=== PATIENT | male | born 1980 ===

== ENCOUNTER → 2020-10-19 | Outpatient (CLI) | payer OTHER ==
[2020-10-19 07:55] LABS: ALANINE AMINOTRANSFERASE 66 U/L (12-78); ALBUMIN 4.3 g/dL (3.4-5.0); ANION GAP 8 mmol/L (5-15); CALCIUM 9.1 mg/dL (8.5-10.1); CHLORIDE 107 mmol/L (98-107); CHOLESTEROL, TOTAL 195 mg/dL (140-239); CREATININE 1.05 mg/dL (0.7-1.3); TRIGLYCERIDES 388 mg/dL (50-200); VLDL CHOLESTEROL 78 mg/dL (0-25)
[2020-10-19 07:57] LABS: ALKALINE PHOSPHATASE 47 U/L (45-117); BILIRUBIN,TOTAL 0.5 mg/dL (0.2-1.0); CHOL/HDL RATIO 6.5; HDL CHOL % 15 % (26-37); HDL CHOLESTEROL (DIRECT) 30 mg/dL (40-60); LDL CHOLESTEROL,CALCULATED 87 mg/dL (54-169); LDL/HDL RATIO 2.9 (0.5-3.0); TOTAL PROTEIN 8.3 g/dL (6.4-8.2)
== END | disposition home or self-care (01) ==
LOC: LAB 07:29
PROVIDERS: ATTEND Family Medicine
DX: Z13.1 Encounter for screening for diabetes mellitus (principal); Z13.220 Encounter for screening for lipoid disorders
CPT/HCPCS: 36415; 80053; 80061; 83036

== ENCOUNTER 2020-12-16 08:11 | Outpatient (CLI) | payer OTHER | END 2020-12-16 23:59 | disposition home or self-care (01) | LOC: STAR 08:11 | PROVIDERS: ATTEND Orthopaedic Surgery | DX: Z02.9 Encounter for administrative examinations, unspecified (principal) ==

== ENCOUNTER 2020-12-27 18:43 | Emergency (ER) | payer OTHER ==
[~2020-12-27] VITALS: Ht 182.9 cm; Wt 98.8 kg
[2020-12-27 18:50] VITALS: BP 160/103
[2020-12-27] MEDS ORDERED: NEOSPORIN OINT. PKT 1 PACKET ONE (20:37)
[2020-12-27] MEDS ORDERED: LIDOCAINE-MPF 1%, 5ML ONE (20:38)
[2020-12-27] MEDS ORDERED: DIPH,PERTUSS(ACELL),TET VAC/PF 0.5 ML IM-VACC ONE ×2 (20:39→21:00)
[2020-12-27] MEDS ORDERED: LIDOCAINE 1%, 10ML INFIL ONE (21:00)
== END 2020-12-27 21:14 | disposition home or self-care (01) ==
LOC: ED 19:00
DX: S68.012A Complete traumatic metacarpophalangeal amputation of left thumb, initial encounter (principal); W26.0XXA Contact with knife, initial encounter; Y93.89 Activity, other specified; Y92.009 Unspecified place in unspecified non-institutional (private) residence as the place of occurrence of the external cause; Y99.8 Other external cause status
CPT/HCPCS: 64450; 90471; 90715; 99284

== ENCOUNTER 2021-01-11 13:45 | Day surgery (SDC) | payer OTHER ==
[~2021-01-11] VITALS: Ht 182.9 cm; Wt 98.2 kg
[~2021-01-11 13:45] MED LIST: EPINEPHRINE 1 MG/ML, 1ML ONE; LIDOCAINE/PF 1%, 30ML ONE; ROPIvacaine/PF 0.5%, 30 ML ONE
[2021-01-11] MEDS ORDERED: FENTANYL PF 100 MCG/2ML ONE ×2 (14:02→16:43)
[2021-01-11] MEDS ORDERED: MIDAZOLAM 1 MG/ML, 2ML ONE (14:02)
[2021-01-11 14:09] VITALS: BP 158/91
[2021-01-11] MEDS ORDERED: CHLORHEXIDINE 15 ML UDC ONE (14:15)
[2021-01-11] MEDS ORDERED: LACTATED RINGERS 1,000 ML IV SCH (14:30)
[2021-01-11] MEDS ORDERED: CHLORHEXIDINE 15 ML UDC PO ONE (14:30)
[2021-01-11] MEDS ORDERED: DEXAMETHASONE 4 MG/ML, 1ML ONE ×2 (14:33→15:06)
[2021-01-11] MEDS ORDERED: PROPOFOL 50 ML ONE ×2 (14:44→15:26)
[2021-01-11] MEDS ORDERED: MIDAZOLAM 1 MG/ML, 2ML IV PRN (15:00)
[2021-01-11] MEDS ORDERED: ALBUTEROL SULFATE 2.5 MG/3 ML NPPB PRN (15:00)
[2021-01-11] MEDS ORDERED: HYDROmorphone 1 MG/ML, 1ML INJ IVPush PRN (15:00)
[2021-01-11] MEDS ORDERED: LABETALOL 5MG/ML, 20ML IV PRN (15:00)
[2021-01-11] MEDS ORDERED: PROMETHAZINE 25 MG/ML, 1ML IVPush PRN (15:00)
[2021-01-11] MEDS ORDERED: OXYcodone 5 MG/5 ML ORAL.SOL UDC PO PRN (15:00)
[2021-01-11] MEDS ORDERED: ACETAMINOPHEN 325 MG TABLET PO PRN (15:00)
[2021-01-11] MEDS ORDERED: METHOCARBAMOL 1,000 MG in DEXTROSE 5% 100 ML IV PRN (15:00)
[2021-01-11] MEDS ORDERED: MEPERIDINE/PF 25MG/0.5ML IVPush PRN (15:00)
[2021-01-11] MEDS ORDERED: FENTANYL PF 100 MCG/2ML IV PRN (15:00)
[2021-01-11] MEDS ORDERED: BUPIVACAINE/PF 0.5% ONE ×3 (15:05→15:27)
[2021-01-11] MEDS ORDERED: LIDOCAINE-MPF 2% ,5ML ONE (15:06)
[2021-01-11] MEDS ORDERED: ONDANSETRON 2MG/ML, 2ML ONE (15:06)
[2021-01-11] MEDS ORDERED: CEFAZOLIN 1,000 MG ONE (15:06)
[2021-01-11] MEDS ORDERED: HYDROmorphone 1 MG/ML, 1ML INJ ONE (15:06)
[2021-01-11] MEDS ORDERED: PROPOFOL 10 MG/ML, 20ML ONE (15:06)
[2021-01-11] MEDS ORDERED: KETOROLAC 30 MG/1 ML ONE (15:06)
[2021-01-11] MEDS ORDERED: ACETAMINOPHEN 650 MG/20.3 ML UDC ONE (16:44)
[2021-01-11] MEDS ORDERED: OXYcodone 5 MG/5 ML ORAL.SOL UDC ONE (16:44)
[2021-01-11] MEDS ORDERED: PROMETHAZINE 25 MG/ML, 1ML ONE (17:05)
[2021-01-11] MEDS ORDERED: SCOPOLAMINE 1MG PATCH TD ONE (18:30)
[2021-01-11] MEDS ORDERED: METOCLOPRAMIDE 5 MG/ML, 2ML IVPush ONE (18:30)
== END 2021-01-11 18:55 | disposition home or self-care (01) ==
LOC: OR 13:45
PROVIDERS: ATTEND Orthopaedic Surgery
DX: S83.512A Sprain of anterior cruciate ligament of left knee, initial encounter (principal); S83.212A Bucket-handle tear of medial meniscus, current injury, left knee, initial encounter; M22.42 Chondromalacia patellae, left knee; Z20.822 Contact with and (suspected) exposure to COVID-19; X58.XXXA Exposure to other specified factors, initial encounter; Y93.89 Activity, other specified; Y92.89 Other specified places as the place of occurrence of the external cause; Y99.8 Other external cause status
CPT/HCPCS: 29881; 29888; 64447; 87635; C1713; J0171; J0690; J1100; J1170; J1885; J2250; J2405; J2550; J2704; J2765; J2795; J2800; J3010; J7120